=== PATIENT | male | born 1975 | race African-American/Black ===

== ENCOUNTER 2016-07-14 11:52 | Emergency (ER) | payer OTHER ==
[~2016-07-14] VITALS: Ht 188 cm; Wt 99.8 kg
[2016-07-14 11:52] VITALS: BP 129/89; PULSE 96; RESP 16; TEMP 97.7; O2SAT 99
--- NOTE | 2016-07-14 11:52 | NUR ---
Pt to bed 1
--- NOTE | 2016-07-14 11:53 | NUR ---
Dr. James at bedside for evaluation
[2016-07-14 12:50] VITALS: BP 113/76; PULSE 77; RESP 16; O2SAT 98
--- NOTE | 2016-07-14 12:52 | NUR ---
Patient given written and verbal discharge instructions and verbalizes understanding. ER MD discussed with patient the results and treatment provided. Given copies of tests performed in ER. Patient in stable condition. ID arm band removeD. Rx of AUGMENTIN, IBUPROFEN given. Patient educated on pain management and to follow up with PMD. Pain Scale . Opportunity for questions provided and answered.
== END 2016-07-14 12:50 | disposition home or self-care (01) ==
LOC: SED 11:52
DX: J40 Bronchitis, not specified as acute or chronic (principal); J32.9 Chronic sinusitis, unspecified; Z88.5 Allergy status to narcotic agent
CPT/HCPCS: 71020-TC; 99284